=== PATIENT | male | born 1985 | race Caucasian/White ===

== ENCOUNTER 2020-11-06 20:17 | Emergency (ER) | payer OTHER, SELFPAY ==
[2020-11-06 20:23] VITALS: BP 127/83; PULSE 88; RESP 17; TEMP 36.8; O2SAT 98
--- NOTE | 2020-11-06 20:36 | PC.NURSE ---
Pt and morals squad police officer present escorted to family services room, awaiting ED bed availability.
--- NOTE | 2020-11-06 20:40 | PC.NURSE ---
Per escorting information management officer, pt agreed to blood draw and urine. ED Charge Nurse notified. Pt now noted to be crying loudly in family services room.
--- NOTE | 2020-11-06 21:23 | PC.NURSE ---
Pt currently being registered in family services room. money position officer present. Officer reports he will transport pt to police station and arrange ride home for pt from there.
--- NOTE | 2020-11-06 21:34 | PC.NURSE ---
Pt ambulated out of ED waiting room with police crime scene technician escort.
== END 2020-11-06 21:40 ==
DX: Z53.21 Procedure and treatment not carried out due to patient leaving prior to being seen by health care provider (principal)
CPT/HCPCS: 99199

== ENCOUNTER 2020-11-06 23:43 | Inpatient (IN) | payer OTHER, SELFPAY ==
--- NOTE | ~2020-11-06 | CT_ITS ---
EXAMINATION: CT BRAIN W/O DATE: 11/07/2020 03:59 INDICATION: Altered mental status TECHNIQUE: Computed tomography (CT) of the head was performed without intravenous contrast. The dose- length product was 605.33 mGy-cm. Automated exposure control and iterative reconstruction technique w ere employed. COMPARISON: No prior studies for comparison. FINDINGS: Normal brain parenchymal volume for age. Normal ortega-white differentiation. No acute intrac ranial hemorrhage, infarction, mass or mass effect. No ventriculomegaly or midline shift. Midline sagittal images demonstrate a normal corpus callosum, c raniovertebral junction and sella turcica. Basilar cisterns are patent. Paranasal sinuses and mastoids are pneumatized. No depressed skull fractures. IMPRESSION: 1. No acute intracranial abnormality. Reviewed, dictated and finalized at location A.
--- NOTE | ~2020-11-06 | XR_ITS ---
XR chest ET placement 11/07/2020 03:22 Indication: Respiratory distress. Endotracheal tube placement. Procedure: AP portable chest Comparison: Comparison to multiple prior studies sequentially, with oldest reviewed study dated . Findings: Endotracheal tube tip 6 cm above the dedrick. NG tube in the stomach. Heart size normal for technique. No focal air space disease, pulmonary edema, pleural effusion or suspected pneumothorax. Impression: 1: No acute cardiopulmonary disease. Reviewed, dictated and finalized at location A. Impression: 1: No acute cardiopulmonary disease.
--- NOTE | ~2020-11-06 | US_ITS ---
EXAMINATION: US renal BI DATE: 11/07/2020 16:30 INDICATION: Acute kidney injury. TECHNIQUE: Multiple ultrasound grayscale images of the kidneys were obtained. COMPARISON: None. FINDINGS: The right kidney measures 11.4 x 5.8 x 5.4 cm. The left kidney measures 11.6 x 6.9 x 6.5 cm. The kidn eys demonstrate normal parenchymal echogenicity. There is no hydronephrosis. The bladder is decompres sed by a Wooten catheter. IMPRESSION: 1. Normal kidneys. No hydronephrosis. Reviewed, dictated and finalized at location B.
--- NOTE | ~2020-11-06 | XR_ITS ---
XR chest 1V portable 11/08/2020 06:06 Indication: Respiratory failure Procedure: AP portable chest Comparison: 11/07/2020 Findings: Endotracheal tube tip 4 cm above the dedrick. NG tube in the stomach. Subtle right basilar i nfiltrates may represent atelectasis or developing pneumonia. No significant effusion or pneumothorax . Heart size normal. Impression: 1: Subtle right basilar infiltrates, atelectasis versus developing pneumonia. Reviewed, dictated and finalized at location A. Impression: 1: Subtle right basilar infiltrates, atelectasis versus developing pneumonia.
[2020-11-06 23:52] VITALS: BP 150/88; PULSE 110; RESP 20; TEMP 36.6; O2SAT 99
[2020-11-07] VITALS (39 sets, daily range): BP systolic 92–122; BP diastolic 51–75; PULSE 60–778; RESP 14–30; TEMP 36.3–36.8; O2SAT 98–100; BMI 21.4
[2020-11-07] MEDS: Please add drug allergy info to patient profile. XX ×2 (00:10→04:16)
[2020-11-07] MEDS: LORazepam INJ (*CRX) 2 MG/ML VIAL IV PUSH (00:11)
[2020-11-07] MEDS: HALOPERIDOL LACTATE 5 MG/ML VIAL (00:30)
[2020-11-07] MEDS: SODIUM CHLORIDE 0.9% IV 1,000 ML 999 ML IV CONT ×3 (00:45→17:18)
--- NOTE | 2020-11-07 00:49 | ECG_ITS ---
Measurements Intervals Fay Rate: 110 P: 68 MA: 153 QRS: 39 QRSD: 99 T: 63 QT: 309 QTc: 418 Interpretive Statements SINUS TACHYCARDIA POSSIBLE LEFT ATRIAL ENLARGEMENT INCOMPLETE RIGHT BUNDLE BRANCH BLOCK BASELINE WANDER- V1-V3 ABNORMAL ECG Electronically Signed On 11-07-2020 7:26:38 CDT by Blu Mark D.O.
[2020-11-07 01:07] LABS: Basophils Absolute Auto 0.1 K/mm3 (0.0-0.1); Basophils Percent Auto 0.3 % (0.2-1.2); Hematocrit 39.1 % (42.0-52.0); Hemoglobin 12.6 g/dL (14.0-18.0); Immature Granulocyte Absolute 0.43 K/mm3 (0.00-0.031); Immature Granulocyte Percent A 1.3 % (0-0.5); Lymphocytes Absolute Auto 0.88 K/mm3 (0.9-3.2); Lymphocytes Percent Auto 2.7 % (18.3-44.2); Mean Corpuscular HGB Conc 32.2 g/dl (32-36); Mean Corpuscular Hemoglobin 27.2 pg (26-34); Mean Corpuscular Volume 84.4 fl (80-100); Mean Platelet Volume 9.3 fl (7.4-10.4); Monocytes Absolute Auto 3.6 K/mm3 (0.1-0.6); Monocytes Percent Auto 11.1 % (2.6-8.5); Neutrophils Absolute Auto 27.5 K/mm3 (1.3-6.7); Neutrophils Percent Auto 84.6 % (45.5-73.1); Platelet Count Result 351 k/mm3 (150-375); Red Blood Count 4.63 M/mm3 (4.6-6.20); White Blood Count 32.5 K/mm3 (4.5-10.0)
[2020-11-07 01:25] LABS: Acetaminophen < 10 ug/mL (10-30); Ethanol < 10 mg/dL (<10); Salicylate < 1.0 mg/dL (2-20)
[2020-11-07 01:38] LABS: Alanine Aminotransferase 25 U/L (4-50); Albumin Level 5.2 g/dL (3.5-5.1); Alkaline Phosphatase 89 U/L (38-126); Anion Gap 14 mmol/L (8-16); Aspartate Amino Transferase 100 U/L (17-59); Bilirubin,Total 2.4 mg/dL (0.2-1.3); Blood Urea Nitrogen 30 mg/dL (9-20); Calcium 9.7 mg/dL (8.4-10.2); Carbon Dioxide 22 mmol/L (22-30); Chloride 108 mmol/L (98-107); Estimated CRCL calculation 35 ml/min; Estimated Glomerular Filt Rate 27; Glucose 51 mg/dL (65-110); Potassium 3.3 mmol/L (3.4-5.0); Sodium 144 mmol/L (137-145)
[2020-11-07] MEDS: DEXTROSE 50% 25 GM/50 ML SYRINGE IV PUSH ×3 (01:46→23:15)
--- NOTE | 2020-11-07 01:51 | ED.GENADULT ---
HPI - General Adult General Chief complaint: Psychiatric Symptoms Stated complaint: alexus Time Seen by Provider: 11/06/20 23:50 Limitations: altered mental status and intoxication History of Present Illness HPI narrative: Patient 35-year-old gentleman who presents the emergency department with chief complaint of altered mental status. Patient was brought to the emergency department earlier for a evidentiary blood draw at that time the patient refused medical care and only had a evidentiary blood draw for DUI performed. Patient was brought back in after he had had progressive altered mental status and was responding to internal stimuli. The patient currently is unable to provide history and is screaming and responding to internal stimuli and kicking on the stretcher. Review of Systems Review of Systems: ROS unobtainable: Yes unobtainable due to mental status PMFSH Social History Social History Gender identity (if verbalized by the patient): Male Comments Patient unable to provide past medical history or social history Exam Narrative: GENERAL: Alert and cooperative HEAD: Normocephalic, atraumatic. EYES: PERRLA and EOMI. ENT: Nares clear, no rhinorrhea or epistaxis. Mucous membranes moist. NECK: Supple. CHEST: Clear to auscultation. No respiratory distress. HEART: Regular rate and rhythm. No murmur heard. Normal peripheral pulses. ABDOMEN: Soft, nontender, nondistended, normal active bowel sounds. EXTREMITIES: Normal range of motion. No edema. SKIN: Warm, dry, no rash. NEURO: No focal deficits. Alert and oriented x3. PSYCH: Normal mood and affect. Course Vital Signs Vital signs: Vital Signs Temperature 36.6 C 11/06/20 23:52 Pulse Rate 110 H 11/06/20 23:52 Respiratory Rate 20 11/06/20 23:52 Blood Pressure 150/88 H 11/06/20 23:52 Pulse Oximetry 99 11/06/20 23:52 Temperature 36.6 C 11/06/20 23:52 Pulse Rate 103 H 11/07/20 02:11 Respiratory Rate 18 11/07/20 02:11 Blood Pressure 112/67 11/07/20 02:11 Pulse Oximetry 99 11/07/20 02:11 Procedures Intubation Intubation #1: Intubation Date: 11/07/20 Intubation Time: 02:59 Time out performed: Yes sedative: Etomidate Mg Given: 20 paralytic: Succinylcholine Mg Given: 100 Laryngoscope: Sathish Tube Size (cm): 7.5 Method of Intubation: orotracheal Number of Attempts: 1 Tube Secured Depth (cm): 23 Tube Secured Location: lips Tube Placement Confirmation: visualized tube passing through cords, equal breath sounds bilaterally, no breath sounds over epigastrium and confirmation by capnometry Patient Tolerated Procedure: well Intubation Complications: none Medical Decision Making Vital Signs Vital Signs: Vital Signs Temperature 36.6 C 11/06/20 23:52 Pulse Rate 110 H 11/06/20 23:52 Respiratory Rate 20 11/06/20 23:52 Blood Pressure 150/88 H 11/06/20 23:52 Pulse Oximetry 99 11/06/20 23:52 Temperature 36.6 C 11/06/20 23:52 Pulse Rate 103 H 11/07/20 02:11 Respiratory Rate 18 11/07/20 02:11 Blood Pressure 112/67 11/07/20 02:11 Pulse Oximetry 99 11/07/20 02:11 Lab Data Result diagrams: 11/07/20 01:01 11/07/20 01:01 Labs: Lab Results 11/07/20 11/07/20 11/07/20 Range/Units 01:01 01:01 01:01 WBC 32.5 H (4.5-10.0) K/mm3 RBC 4.63 (4.6-6.20) M/mm3 Hgb 12.6 L (14.0-18.0) g/dL Hct 39.1 L (42.0-52.0) % MCV 84.4 (80-100) fl MCH 27.2 (26-34) pg MCHC 32.2 (32-36) g/dl RDW 14.0 (11.5-14.5) % Plt Count 351 (150-375) k/mm3 MPV 9.3 (7.4-10.4) fl Immature Gran % (Auto) 1.3 H (0-0.5) % Neut % (Auto) 84.6 H (45.5-73.1) % Lymph % (Auto) 2.7 L (18.3-44.2) % [place] % (Auto) 11.1 H (2.6-8.5) % Eos % (Auto) 0.0 (0-4.4) % Baso % (Auto) 0.3 (0.2-1.2) % Lymph # (Auto) 0.88 L (0.9-3.2) K/mm3 [place]linger # (Auto) 3.6 H
[2020-11-07 02:02] LABS: Add Urine Microscopic? YES; Amorphous Sediment Urine Few; Appearance Urine Cloudy (Clear); Bacteria Urine 4+ /hpf; Bilirubin Urine Negative (Negative); Blood Urine 3+ (Negative); Color Urine Red (Yellow); Glucose Urine UA Negative (Negative); Granular Casts Urine 30-49 /lpf; Ketones Urine Negative (Negative); Leukocyte Esterase Ur Negative LEU/UL (Negative); Nitrate Urine Negative (Negative); Protein Urine 2+ mg/dL (Negative); Specific Grav Ur 1.021 (1.001-1.035); Urobilinogen Urine Negative mg/dL (<2.0)
[2020-11-07 02:04] LABS: RBC Urine >75 /hpf (0-2)
[2020-11-07 02:12] LABS: Glucose Point of Care 156 mg/dl (65-105)
[2020-11-07 02:22] LABS: Creatine Kinase 4152 U/L (55-170)
[2020-11-07 02:25] LABS: Amphetamine Screen Urine Negative (Negative); Barbiturate Screen Urine Negative (Negative); Benzodiazepines Screen Urine Negative (Negative); Cannabinoid Screen Urine Positive (Negative); Cocaine Screen Urine Negative (Negative); Methadone Screen Urine Negative (Negative); Opiate Screen Urine Negative (Negative); Phencyclidine Screen Urine Negative (Negative)
[2020-11-07 02:37] LABS: Base Excess ABG -7.3 mEq/l (+/-2.0); Fractional Inspired Oxygen 37 %; Oxygen Content ABG 16.8 %vol (16.0-22.0); Oxygen Saturation ABG 99.2 % (95.0-100.0); Oxyhemoglobin 97.7 % THb (90.0-100.0); PO2 ABG 231.9 mmHg (80.0-100.0); PO2 FiO2 Ratio Arterial Blood 6.27 %; Total Hemoglobin 11.8 g/dL (12.0-18.0)
[2020-11-07 02:41] LABS: PCO2 ABG 63.2 mmHg (35.0-45.0); pH ABG 7.159 (7.350-7.450)
[2020-11-07 02:43] LABS: Site Drawn RIGHT RADIAL
[2020-11-07 02:44] LABS: Device NASAL CANNULA; Modified Allen's Test Pass
[2020-11-07] MEDS: ETOMIDATE 20 MG/10 ML AMPUL IV PUSH (02:55)
[2020-11-07] MEDS: RAPID SEQUENCE INTUBATION KIT 1 EACH (02:55)
[2020-11-07 03:08] LABS: Lactic Acid Reflex 1.1 mmol/L (0.7-2.1)
--- NOTE | 2020-11-07 03:15 | PC.NURSE ---
pt intubated with a # 7.5 et tube @ lip line@ 24 with + co2. vent setting 500 tidal peep -5 ,rats 18 , 30% oxygen
[2020-11-07] MEDS: PROPOFOL IV EMULSION 100 ML 2.13 MG IV CONT (04:03)
[2020-11-07] MEDS: DEXTROSE 5%/0.9% SOD CHL 1,000 ML 100 ML IV CONT (04:37)
--- NOTE | 2020-11-07 04:54 | PM.IMHP ---
H&P: HPI History of Present Illness Date/Time: 11/07/20 04:54 Chief Complaint: altered mental status Narrative: Patient 35-year-old gentleman who presents the emergency department with chief complaint of altered mental status. Patient was stopped by Police for multiple calls of erratic driving. When stopped He was found to be altered. EMS was called for evaluation. he was found to have buttons of what was supposed to be drugs. RUBBER TUBING SPLICER do not field test these substances any longer and hence the patient was brought to the hospital for evidentiary blood draw. Patient was making indiscernible noises and moving around erratically. He was noted to have constricted and sluggish pupils. When he was asked his name he gave his name and when asked if he had complained he responded with I am ready to go . He did not explain what it means. Patient complained of being thirsty and denied any drug or alcohol use. It was suspected that he had some drugs on board and hence 2 mg of Narcan was given nasally. Patient was then placed an ambulance and brought to the hospital. start of IV was attempted and was placed on library monitor. The patient admitted in the ambulance that he has used drugs in the past. he was alert and oriented and stated that he was not happy about how things were going and he had just gotten a new job and is afraid of losing it. In route to the hospital he weighed came nauseated attempted to vomit few times. He was given Zofran which did not help. He refused medical examination at the hospital and only had a DUI kit. The patient was then transported back to the holding cell where patient was noted to have bizarre behavior which includes clapping his hands to the point of them cracking and bleeding uncontrollable screams and shouting sweating profusely and hence EMS was notified and called again. Upon EMS arrival his pupils were pinpoint. He was brought to the ED. This time in the ED because of his agitation is given Ativan 2 mg and Haldol 5 mg. He was noted to have hypoglycemia which was corrected without any improvement in arm in his mental status. Eventually to protect his airways after the sedating drugs he was intubated and was placed on ventilator. His been placed on propofol for sedation. He was noted to have acute renal failure with creatinine of 2.7 with elevated CK level of 4152 urine drug screen was positive for cannabinoids however negative for Tylenol salicylates and alcohol he is also noted to have elevated leukocyte level at 32,000. He is admitted to the ICU for further care Review of Systems Review of Systems: ROS unobtainable: Yes unobtainable due to medical condition and unobtainable due to mental status [facility] Social History Social History Gender identity (if verbalized by the patient): Male Meds Vital Signs Vital Signs - 24 hr 11/06/20 23:52 11/07/20 00:56 11/07/20 01:32 Temperature 97.9 F Pulse Rate 110 H 108 H 103 H Respiratory Rate 20 14 18 Blood Pressure 150/88 H 110/67 Pulse Oximetry 99 100 100 11/07/20 02:11 11/07/20 03:22 11/07/20 04:03 Temperature Pulse Rate 103 H 80 778 H Respiratory Rate 18 18 Blood Pressure 112/67 Pulse Oximetry 99 100 11/07/20 04:18 11/07/20 04:31 Temperature Pulse Rate 78 76 Respiratory Rate 18 18 Blood Pressure Pulse Oximetry 100 Exam Narrative: GENERAL: Sedated on vent HEAD: Normocephalic, atraumatic. EYES: PERRLA NECK: Supple. CHEST: Bilateral equal air entry, No respiratory distress. HEART: Regular rate and rhythm. No murmur heard. Normal peripheral pulses. ABDOMEN: Soft, nondistended, normal active bowel sounds. EXTREMITIES: Normal range of motion. No edema. SKIN: Warm, dry, no rash. NEURO: Sedated on vent H&P: Results Labs Labs: Short CBC 11/07/20 Range/Units 01:01 WBC 32.5 H (4.5-10.0) K/mm3 Hgb 12.6 L (14.0-18.0) g/dL Hct 39.1 L (42.0-52.0) % Plt Count 351 (150-375) k/mm3 B
--- NOTE | 2020-11-07 04:57 | PC.NURSE ---
called [phone] is pt farther
[2020-11-07 05:13] LABS: Glucose Point of Care 84 mg/dl (65-105)
--- NOTE | 2020-11-07 06:50 | ADMGEN ---
This patient, Panchito Castro, was admitted to Intensive Care Unit-1. Patient/family oriented to hospital policies and general routines including ID bracelet, bed and alarms, visiting hours, pain management, procedures, bathroom and other care routines, personal items, smoking policy, room service/diet, and visiting hours. Information on how to activate the Rapid Response Team has been discussed. Patient/Family are encouraged to report perceived risks to care and to ask questions if they do not understand what they are told or what they should do.
--- NOTE | 2020-11-07 07:02 | PC.NURSE ---
Addendum entered by Deb Matthews RN 11/07/20 07:07: Late ENTRY for 11/07/20 @ approx. 0015 Original Note: Pt observed in ED 15 on security camera slapping the marx and side of bed, clapping loudly, occasionally yelling. Door open, wind technician outside of room. Pt also alternating between singing loudly and humping the bed. pt also then allowed his pants to fall down and his penis was visible. pt continued to move around the room, before sitting on the bed with his genitals exposed. Covered by staff member for kelli.
[2020-11-07] MEDS: SODIUM CHLORIDE 0.9% IV 1,000 ML 200 ML IV CONT (07:06)
[2020-11-07 07:35] LABS: Alveolar/Arterial O2 Gradient 35.2 mmHg; Base Excess ABG -7.9 mEq/l (+/-2.0); Carboxyhemoglobin 0.2 % THb (0-2.0); Fractional Inspired Oxygen 30 %; HCO3 ABG 16.5 mEq/l (22.0-26.0); Methemoglobin ABG 0.6 %THb (0-1.5); Oxygen Content ABG 16.3 %vol (16.0-22.0); Oxygen Saturation ABG 98.8 % (95.0-100.0); Oxyhemoglobin 96.9 % THb (90.0-100.0); PCO2 ABG 30.3 mmHg (35.0-45.0); PO2 ABG 143.1 mmHg (80.0-100.0); PO2 FiO2 Ratio Arterial Blood 4.77 %; Reduced Hemoglobin 2.3 %THb (0-5.0); Total Hemoglobin 11.8 g/dL (12.0-18.0); pH ABG 7.353 (7.350-7.450)
[2020-11-07 07:36] LABS: Device VENTILATOR; Modified Allen's Test Pass; Site Drawn RIGHT RADIAL
[2020-11-07 07:37] LABS: Arterial Blood Gas PEEP 5 cmH2O; Arterial Blood Gas Vent Mode CMV; Arterial Blood Gas Ventilator rate 18 /MIN
[2020-11-07 07:38] LABS: Arterial Blood Gas Tidal Volume 500 ml
[2020-11-07 08:16] LABS: Glucose Point of Care 111 mg/dl (65-105)
[2020-11-07] MEDS: FAMOTIDINE 20 MG/2 ML VIAL IV PUSH ×2 (08:52→19:47)
[2020-11-07] MEDS: HEPARIN SODIUM 5,000 UNITS/ML VIAL 5000 UNITS SUB-Q ×2 (08:52→19:47)
[2020-11-07] MEDS: MINERAL OIL/WHITE PETROLATUM OINTMENT 1 APPLIC EACH EYE ×2 (08:53→19:47)
[2020-11-07] MEDS: DEXTROSE 5%/0.45% SOD CHL 1,000 ML 200 ML IV CONT ×2 (09:55→15:06)
[2020-11-07] MEDS: POTASSIUM CHLORIDE 20 MEQ PACKET (FOR LIQUID) 40 MEQ FEED TUBE (10:02)
[2020-11-07] MEDS: PROPOFOL IV EMULSION 100 ML 7.9 MG IV CONT (11:41)
[2020-11-07 12:45] LABS: Glucose Point of Care 100 mg/dl (65-105)
--- NOTE | 2020-11-07 15:45 | WPDCNINT ---
Assessment and Plan Assessment and plan (1) Acute respiratory failure: Code(s): J96.00 - Acute respiratory failure, unspecified whether with hypoxia or hypercapnia Status: Acute Assessment and Plan: Acute Respiratory failure secondary to drug overdose and toxic encephalopathy Continue full mechanical ventilation support to prevent hypoxemia/hypercarbia and end organ damage. ABG and PCXR reviewed and will repeat in am. Tidal volume decreased to 420 and rate increased to 20 Low tidal volume ventilation strategy to prevent volutrauma Will attempt SBT when mental status improves (2) Acute kidney injury: Code(s): N17.9 - Acute kidney failure, unspecified Status: Acute Assessment and Plan: patient appears to have some sort of chronic kidney disease but baseline creatinine is unknown he also has mild rhabdomyolysis continue IV fluids monitor CK level check renal ultrasound monitor urine output and electrolytes replace low potassium (3) Rhabdomyolysis: Code(s): M62.82 - Rhabdomyolysis Status: Acute Assessment and Plan: continue IV fluids (4) Drug overdose: Code(s): T50.901A - Poisoning by unspecified drugs, medicaments and biological substances, accidental (unintentional), initial encounter Status: Acute Assessment and Plan: exact nature of drugs that he took is unknown although his UDS was positive for cannabinoids EKG shows acceptable QRS and QTC intervals continue supportive care (5) Acute encephalopathy: Code(s): G93.40 - Encephalopathy, unspecified Status: Acute Assessment and Plan: secondary to drug overdose head CT negative continue supportive care check ammonia and TSH (6) Leukocytosis: Code(s): D72.829 - Elevated white blood cell count, unspecified Status: Acute Assessment and Plan: likely stress response as patient does not have any other evidence of infection his chest x-ray UA were clear and lactic acid level was normal he is afebrile continue monitor Additional Plan DVT prophylaxis - heparin subQ Stress ulcer prophylaxis - Pepcid Nutrition - NPO Code Status - Full Code Total Critical Care Time - 35 minutes Due to a high probability of clinically significant, life threatening deterioration, the patient required my highest level of preparedness to intervene emergently and I personally spent this critical care time directly and personally managing the patient. This critical care time included obtaining a history; examining the patient; pulse oximetry; ordering and review of studies; arranging urgent treatment with development of a management plan; evaluation of patient's response to treatment; frequent reassessment; and discussions with other providers. It was exclusive of separately billable procedures and treating other patients and teaching time. Please see Assessment and Plan section and the rest of the note for further information on patient assessment and treatment Typecasting Machine Operator Consult Note Consult date: 11/07/20 Time Seen: 08:00 HPI: Panchito Castro is a 35 year old male who was brought the emergency department yesterday with chief complaint of altered mental status. Patient was brought to the emergency department earlier for a evidentiary blood draw at that time the patient refused medical care and only had a evidentiary blood draw for DUI was performed. Patient was later brought back in after he had had progressive altered mental status. he did admit to EMS that he had taken some drugs. The patient was unable to provide history and was screaming and kicking on the stretcher. patient was extremely agitated and uncontrollable. He was given Ativan and Haldol in ER. he was also noted to be hypoglycemic. eventually patient was sedated and intubated for his own safety and was placed on mechanical ventilation. he was started on IV propofol. Workup showed elevated creatinine of
[2020-11-07 16:11] LABS: Anion Gap 10 mmol/L (8-16); Blood Urea Nitrogen 44 mg/dL (9-20); Carbon Dioxide 19 mmol/L (22-30); Chloride 108 mmol/L (98-107); Estimated CRCL calculation 30 ml/min; Estimated Glomerular Filt Rate 24; Glucose 97 mg/dL (65-110); Potassium 4.4 mmol/L (3.4-5.0); Sodium 137 mmol/L (137-145)
[2020-11-07 17:17] LABS: Glucose Point of Care 107 mg/dl (65-105)
[2020-11-07 17:17] LABS: Glucose Point of Care 37 mg/dl (65-105)
[2020-11-07] MEDS: SODIUM BICARBONATE 8.4% 150 MEQ in DEXTROSE 5% 1,000 ML 950 ML IV CONT (18:23)
--- NOTE | 2020-11-07 18:26 | PM.IMPN ---
Progress Note: A&P Assessment and Plan (1) Acute respiratory failure: Code(s): J96.00 - Acute respiratory failure, unspecified whether with hypoxia or hypercapnia Status: Acute Assessment and Plan: Acute Respiratory failure secondary to drug overdose and toxic encephalopathy. Intubated for airway protection. Continue full mechanical ventilation support for now. Possible extubation tomorrow (2) Acute kidney injury: Code(s): N17.9 - Acute kidney failure, unspecified Status: Acute Assessment and Plan: Patient may have some sort of chronic kidney disease but baseline creatinine is unknown. Cr here was 3.0. He has rhabdomyolysis as well. UA with WC, RBC and protein. Contineu IV fluids. Renal US normal. Follow levels. Monitor urine output and electrolytes (3) Rhabdomyolysis: Code(s): M62.82 - Rhabdomyolysis Status: Acute Assessment and Plan: TCK 4152 on admisison. Cr up to 3.0. Started on Na Bicarb. Continue IV fluids. Follow levels adn renal function (4) Drug overdose: Code(s): T50.901A - Poisoning by unspecified drugs, medicaments and biological substances, accidental (unintentional), initial encounter Status: Acute Assessment and Plan: The exact types of drugs that he took is unknown. UDS was positive for cannabinoids. EKG shows acceptable QRS and QTC intervals. Tele showing no acute issues. Mental status improved and he is following commands. Continue supportive care (5) Acute encephalopathy: Code(s): G93.40 - Encephalopathy, unspecified Status: Acute Assessment and Plan: Encephalopathic on admission. Brain CT normal. TSH normal. UDS positive for cannabis. Fels secondary to drug overdose. Improved. Continue supportive care. (6) Leukocytosis: Code(s): D72.829 - Elevated white blood cell count, unspecified Status: Acute Assessment and Plan: WBC 32K. CXR clear. UA clear. [place] related to stress response as patient does not have any other evidence of infection. Monitor Subjective Date/time seen: 11/07/20 18:26 Interval history: 35yo male her for altered mental status. Assuming care. Chart reviewed. Patient intubated for airway protection. Follows commands. Review of Systems Review of Systems: ROS unobtainable: Yes unobtainable due to endotracheal tube Exam Narrative: AF 97.5 94/57 72 20 100% MV Gen - appears comfortable on the vent HEENT - ETT and OG secured. Chest - CTA bilaterally, nml RR CV - RRR S1/S2; Tele showing no signifincat dysrhythmias Abd - Soft, NT/ND, Positive BS. - Wooten secured draining clear yellow urine Ext - No pedal edema Neuro - sedated Skin - Warm and dry Objective Data Vital Signs Vital Signs: Vital Signs - 24 hr 11/06/20 23:52 11/07/20 00:56 11/07/20 01:32 Temperature 97.9 F Pulse Rate 110 H 108 H 103 H Respiratory Rate 20 14 18 Blood Pressure 150/88 H 110/67 Pulse Oximetry 99 100 100 11/07/20 02:11 11/07/20 03:22 11/07/20 04:03 Temperature Pulse Rate 103 H 80 778 H Respiratory Rate 18 18 Blood Pressure 112/67 Pulse Oximetry 99 100 11/07/20 04:18 11/07/20 04:31 11/07/20 04:45 Temperature Pulse Rate 78 76 84 Respiratory Rate 18 18 18 Blood Pressure 109/70 Pulse Oximetry 100 100 11/07/20 04:48 11/07/20 05:00 11/07/20 05:04 Temperature Pulse Rate 80 85 92 Respiratory Rate 18 18 18 Blood Pressure 122/75 Pulse Oximetry 100 100 100 11/07/20 05:11 11/07/20 05:16 11/07/20 05:31 Temperature Pulse Rate 77 90 85 Respiratory Rate 18 18 18 Blood Pressure Pulse Oximetry 100 100 11/07/20 05:45 11/07/20 07:03 11/07/20 07:07 Temperature 97.9 F Pulse Rate 83 72 82 Respiratory Rate 18 18 22 H Blood Pressure 103/56 L Pulse Oximetry 100 11/07/20 07:52 11/07/20 08:00 11/07/20 08:53 Temperature 97.3 F L Pulse Rate 79 75 75 Respiratory Rate 18 18 Blood Pressure 122/57 L
[2020-11-07 18:57] LABS: Ammonia 16 umol/L (9-30)
[2020-11-07] MEDS: PROPOFOL IV EMULSION 100 ML 15.79 MG IV CONT (19:44)
--- NOTE | 2020-11-07 19:47 | PC.NURSE ---
Sedation titrated for -2 rass. Patient showing signs of extreme agitation trying to pull out ET.
[2020-11-07 20:16] LABS: Glucose Point of Care 79 mg/dl (65-105)
[2020-11-07 23:13] LABS: Glucose Point of Care 69 mg/dl (65-105)
[2020-11-08] VITALS (9 sets, daily range): BP systolic 93–107; BP diastolic 60–63; PULSE 59–83; RESP 20–21; TEMP 36.6–37.3; O2SAT 96–99
[2020-11-08] MEDS: SODIUM BICARBONATE 8.4% 150 MEQ in DEXTROSE 5% 1,000 ML 950 ML IV CONT (01:15)
[2020-11-08 01:16] LABS: Glucose Point of Care 93 mg/dl (65-105)
[2020-11-08] MEDS: PROPOFOL IV EMULSION 100 ML 13.82 MG IV CONT (02:34)
[2020-11-08 04:35] LABS: Basophils Percent Auto 0.4 % (0.2-1.2); Eosinophils Absolute Auto 0.1 K/mm3 (0-0.3); Eosinophils Percent Auto 1.3 % (0-4.4); Hematocrit 30.4 % (42.0-52.0); Hemoglobin 9.5 g/dL (14.0-18.0); Immature Granulocyte Absolute 0.03 K/mm3 (0.00-0.031); Immature Granulocyte Percent A 0.3 % (0-0.5); Lymphocytes Percent Auto 21.7 % (18.3-44.2); Mean Corpuscular HGB Conc 31.3 g/dl (32-36); Mean Corpuscular Hemoglobin 26.6 pg (26-34); Mean Corpuscular Volume 85.2 fl (80-100); Mean Platelet Volume 9.6 fl (7.4-10.4); Monocytes Absolute Auto 0.7 K/mm3 (0.1-0.6); Monocytes Percent Auto 7.7 % (2.6-8.5); Neutrophils Absolute Auto 6.6 K/mm3 (1.3-6.7); Neutrophils Percent Auto 68.6 % (45.5-73.1); Platelet Count Result 220 k/mm3 (150-375); Red Blood Count 3.57 M/mm3 (4.6-6.20); Red Cell Distribution Width 14.5 % (11.5-14.5); White Blood Count 9.7 K/mm3 (4.5-10.0)
[2020-11-08 05:59] LABS: Alveolar/Arterial O2 Gradient 68.4 mmHg; Base Excess ABG -2.6 mEq/l (+/-2.0); Carboxyhemoglobin 0.2 % THb (0-2.0); Device VENTILATOR; Fractional Inspired Oxygen 30 %; HCO3 ABG 21.1 mEq/l (22.0-26.0); Methemoglobin ABG 0.6 %THb (0-1.5); Modified Allen's Test Pass; Oxygen Content ABG 14.5 %vol (16.0-22.0); Oxygen Saturation ABG 98.1 % (95.0-100.0); Oxyhemoglobin 96.3 % THb (90.0-100.0); PCO2 ABG 32.8 mmHg (35.0-45.0); PO2 FiO2 Ratio Arterial Blood 3.57 %; Reduced Hemoglobin 2.9 %THb (0-5.0); Site Drawn RIGHT RADIAL; Total Hemoglobin 10.6 g/dL (12.0-18.0); pH ABG 7.427 (7.350-7.450)
[2020-11-08 06:00] LABS: Arterial Blood Gas PEEP 5 cmH2O; Arterial Blood Gas Tidal Volume 420 ml; Arterial Blood Gas Vent Mode CMV; Arterial Blood Gas Ventilator rate 20 /MIN
[2020-11-08 06:44] LABS: Alanine Aminotransferase 68 U/L (4-50); Albumin Level 2.8 g/dL (3.5-5.1); Alkaline Phosphatase 57 U/L (38-126); Anion Gap 6 mmol/L (8-16); Aspartate Amino Transferase 120 U/L (17-59); Bilirubin,Total 0.3 mg/dL (0.2-1.3); Blood Urea Nitrogen 47 mg/dL (9-20); Carbon Dioxide 23 mmol/L (22-30); Chloride 109 mmol/L (98-107); Estimated CRCL calculation 25 ml/min; Estimated Glomerular Filt Rate 18; Glucose 99 mg/dL (65-110); Magnesium 2.1 mg/dL (1.6-2.3); Potassium 3.5 mmol/L (3.4-5.0); Sodium 138 mmol/L (137-145)
[2020-11-08 07:36] LABS: Glucose Point of Care 111 mg/dl (65-105)
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
--- NOTE | 2020-11-08 08:54 | PC.NURSE ---
pt was extubated at 0800 after sedation was stopped at 730 and placed on c-pap with pressure support, by 825 pt tstated that he was going home, Dr. Lucero talked to him and he still insisted that he was going home, alert and oriented answering all questions appropriately, signed ama sheet after talking to father on the phone twice, pt left unit at 0855,all iv's dc'd and fu dc'd prior to discharge
--- NOTE | 2020-11-08 10:27 | WPDINTPN ---
Progress Note: A&P Assessment and Plan (1) Acute respiratory failure: Code(s): J96.00 - Acute respiratory failure, unspecified whether with hypoxia or hypercapnia Status: Acute Assessment and Plan: Acute Respiratory failure secondary to drug overdose and toxic encephalopathy yesterday I placed patient on pressure support ventilation after holding sedation but patient was going into apnea ventilation. Today after holding sedation patient was again placed on pressure support ventilation and he had adequate RSBI. patient was awake and following commands and answering questions appropriately by nodding his head. Since patient was intubated for altered mental status patient was extubated. Post extubation patient left AMA- see below (2) Acute kidney injury: Code(s): N17.9 - Acute kidney failure, unspecified Status: Acute Assessment and Plan: patient appears to have some sort of chronic kidney disease but baseline creatinine is unknown he also has mild rhabdomyolysis and CK level actually increased to 6805 he was on IV fluids throughout renal ultrasound was negative (3) Rhabdomyolysis: Code(s): M62.82 - Rhabdomyolysis Status: Acute Assessment and Plan: patient is on IV fluids with bicarb CK level increased today (4) Drug overdose: Code(s): T50.901A - Poisoning by unspecified drugs, medicaments and biological substances, accidental (unintentional), initial encounter Status: Acute Assessment and Plan: exact nature of drugs that he took is unknown although his UDS was positive for cannabinoids EKG shows acceptable QRS and QTC intervals continue supportive care (5) Acute encephalopathy: Code(s): G93.40 - Encephalopathy, unspecified Status: Acute Assessment and Plan: secondary to drug overdose. resolved head CT negative continue supportive care check ammonia and TSH (6) Leukocytosis: Code(s): D72.829 - Elevated white blood cell count, unspecified Status: Acute Assessment and Plan: likely stress response as patient does not have any other evidence of infection his chest x-ray UA were clear and lactic acid level was normal he is afebrile resolved is WBC normal today Additional Plan DVT prophylaxis - heparin subQ Stress ulcer prophylaxis - Pepcid Nutrition - NPO Code Status - Full Code Post extubation patient requested to leave. I Requested him to stay and explained to him that he is not medically stable to be discharged at this time.. Explained him that he just came off the ventilator And had acute kidney injury on CKD. I explained him that I have consulted Nephrology who will evaluate him later today and we need to continue with IV fluids and rehydration along with monitoring of his electrolytes. His respiratory status still needs to be monitor. Patient was adamant that he wanted to leave and go to [employer] for his new job and was afraid that he was going to lose his job. he was alert oriented x3 and had full insight. I warned him that his renal failure may worsen. He may end up needing dialysis or even this could lead to his .he told me that he does not care and will deal with the consequences. he said that he was ready to sign what ever papers needed to be signed for him to be released. He told me that he will 'take care of it' once he gets to [employer]. I called and spoke to patient's father Panchito Castro and informed him of patient's request to leave against medical advice. He asked me to request patient to stay until he gets to the hospital and wanted to speak to him by phone . His call was transferred to patient twice but patient hung up on him. He signed AMA release form and left. Total Critical Care Time - 35 minutes Due to a high probability of clinically significant, life threatening deterioration, the patient required my highest level of preparedness to intervene emergently and
[2020-11-08 10:28] LABS: Creatine Kinase 6805 U/L (55-170)
--- NOTE | 2020-11-08 16:52 | PM.DS ---
DS: Admitting Diagnosis Admitting Diagnosis Altered mental status. DS: Discharge Diagnosis Discharge Diagnosis (1) Acute respiratory failure: Code(s): J96.00 - Acute respiratory failure, unspecified whether with hypoxia or hypercapnia Status: Acute Assessment and Plan: Acute Respiratory failure secondary to drug overdose and toxic encephalopathy. Intubated for airway protection. Was extubated on the morning of 11/08 and did well. Bird signed out against medical advise a short time later. (2) Acute kidney injury: Code(s): N17.9 - Acute kidney failure, unspecified Status: Acute Assessment and Plan: Patient may have some sort of chronic kidney disease but baseline creatinine is unknown. Cr here was 2.7 but climbed to 3.9. He has rhabdomyolysis as well which is probably contributing to his BARBIE. UA with WBC, RBC and protein. Renal US normal. Treated with IV fluids. Nephrology was consulted. (3) Rhabdomyolysis: Code(s): M62.82 - Rhabdomyolysis Status: Acute Assessment and Plan: TCK 4152 on admisison. Cr up to 3.9. Started on IV fluids with Na Bicarb. Repeat total creatinine kinase was 6805. (4) Drug overdose: Code(s): T50.901A - Poisoning by unspecified drugs, medicaments and biological substances, accidental (unintentional), initial encounter Status: Acute Assessment and Plan: The exact types of drugs that he took is unknown. UDS was positive for cannabinoids. EKG shows acceptable QRS and QTC intervals. Tele showing no acute issues. Mental status improved. (5) Acute encephalopathy: Code(s): G93.40 - Encephalopathy, unspecified Status: Acute Assessment and Plan: Encephalopathic on admission. Brain CT normal. TSH normal. UDS positive for cannabis. Fels secondary to drug overdose. (6) Leukocytosis: Code(s): D72.829 - Elevated white blood cell count, unspecified Status: Acute Assessment and Plan: WBC 32K. CXR clear. UA clear. Baldwin related to stress response as patient does not have any other evidence of infection. Repeat white count was normal. DS: Summary Hospital Course Reason for hospitalization: 35yo male here for altered mental status. Please see H&P for details Hospital Course: Please see above for details of hospital course Time Spent with Patient Time attestation: Total time spent providing and/or coordinating discharge services:15 minutes Time spent: Less than 30 minutes Exam Narrative: Patient left AMA prior to my evaluation DS: Data Data Completed and Pending Labs on day of discharge: Labs from last 24 hours 11/08/20 11/08/20 11/08/20 07:25 05:53 04:15 WBC RBC Hgb Hct MCV MCH MCHC RDW Plt Count MPV Immature Gran % (Auto) Neut % (Auto) Lymph % (Auto) [place] % (Auto) Eos % (Auto) Baso % (Auto) Lymph # (Auto) [place] # (Auto) Eos # (Auto) Baso # (Auto) Abs Immat Gran (auto) Absolute Neuts (auto) Absolute Nucleated RBC Nucleated RBC % Puncture Site Right radial ABG pH 7.427 ABG pCO2 32.8 L ABG pO2 107.0 H ABG PO2/FiO2 Ratio 3.57 ABG HCO3 21.1 L ABG O2 Saturation 98.1 ABG O2 Content 14.5 L ABG Base Excess -2.6 A-a Gradient 68.4 Oxyhemoglobin 96.3 Carboxyhemoglobin 0.2 Methemoglobin 0.6 Reduced Hemoglobin 2.9 Total Hemoglobin 10.6 L O2 Delivery Device Ventilator O2 Liters/Min Not Reportable Minute Volume Not Reportable Vent Rate 20 Vent Mode Cmv FiO2 30 Tidal Volume 420 PEEP 5 Peak Inspir Pressure Not Reportable Pressure Support Not Reportable Sodium 138 Potassium 3.5 Chloride 109 H Carbon Dioxide 23 Anion Gap 6 L BUN 47 H Creatinine 3.90 H Estim Creat Clear Calc 25 Estimated GFR 18 L Glucose 99 POC Capillary Glucose 111 H Calcium 8.0 L Magnesium
--- NOTE | 2020-11-10 06:26 | PC.NURSE ---
Urine cx is clean; no growth. Dr. Knox aware.
--- NOTE | 2020-11-15 13:26 | PC.NURSE ---
Blood cx are negative.
== END 2020-11-08 08:55 | disposition left against medical advice (07) | DRG 917 ==
LOC: ANHED 11-07 00:06 → ANHICU 11-07 06:26
PROVIDERS: Internal Medicine; Admitting Provider Internal Medicine; Emergency Provider Emergency Medicine; Visit Provider Internal Medicine
DX: T50.901A Poisoning by unspecified drugs, medicaments and biological substances, accidental (unintentional), initial encounter (principal); G92 Toxic encephalopathy; J96.00 Acute respiratory failure, unspecified whether with hypoxia or hypercapnia; M62.82 Rhabdomyolysis; N17.9 Acute kidney failure, unspecified; E87.2 Acidosis; F19.99 Other psychoactive substance use, unspecified with unspecified psychoactive substance-induced disorder; F12.90 Cannabis use, unspecified, uncomplicated; E87.6 Hypokalemia; N18.9 Chronic kidney disease, unspecified; D72.829 Elevated white blood cell count, unspecified; E16.2 Hypoglycemia, unspecified
CPT/HCPCS: 12013; 36415; 36600; 70450; 71045; 76775; 80048; 80053; 80307; 81001; 82140; 82375; 82550; 82805; 82948; 83050; 83605; 83735; 84443; 85025; 87040; 87086; 93005; 94003; 96365; 96375; 99285; A9270; J1630; J1644; J2060; J2704; J3480; J7030; J7042; J7070